=== PATIENT | female | born 1985 | race Caucasian/White ===

== ENCOUNTER 2017-03-12 05:00 | Day surgery (SDC) | payer OTHER ==
[2017-02-17 12:41] VITALS: BMI 19.0
--- NOTE | 2017-02-17 13:10 | PAT Medication Instructions ---
Service Date Feb 17, 2017. Current Home Medication List Amlodipine (Norvasc), 2.5 MG PO QPM Ascorbic Acid (Vitamin C), 500 MG PO QPM Ijlwmlp-Bfoeekkxbkacc-Xttkeiqt (Excedrin Extra Strength), 1-2 TAB PO PRN PRN for -2 Ibuprofen (Advil), 400 MG PO PRN [Ferrous Sul], 65 MG PO QPM Medication Instructions For Your Scheduled Surgery - Hold the following medications the morning of surgery: Eqeugdq-Uyizmgtustjpk-Qnaqecsk (Excedrin Extra Strength), 1-2 TAB PO PRN ( otherwise okay to continue per surgeon) Ibuprofen (Advil), 400 MG PO PRN (otherwise okay to continue per surgeon) - Take the following medications as scheduled the night before surgery: Amlodipine (Norvasc), 2.5 MG PO QPM Ascorbic Acid (Vitamin C), 500 MG PO QPM [Ferrous Sul], 65 MG PO QPM nothing to eat or drink after midnight If you have any questions please call us at [phone] or [phone] or [phone]
[2017-02-17 14:54] LABS: BASO % 0.5 %; BASO ABS # 0.03 K/uL (0-0.2); COMPLETE YES; EOS % 1.2 %; HEMATOCRIT 42.8 % (37-47); LYMPH % 25.2 %; LYMPH ABS # 1.64 K/uL (1.2-3.4); MEAN CORPUSCULAR HEMOGLOBIN 30.8 pg (25-34); MEAN CORPUSCULAR HGB CONC 34.6 g/dl (32-36); MEAN PLATELET VOLUME 10.4 fL (7.4-10.4); MONO % 9.2 %; NEUT % 63.9 %; PLATELET COUNT 270 K/uL (130-400); RED BLOOD COUNT 4.81 M/uL (4.2-5.4); WHITE BLOOD COUNT 6.51 K/uL (4.8-10.8)
--- NOTE | 2017-02-25 09:08 | HISTORY & PHYSICAL EXAMINATION ---
DATE OF ADMISSION: 03/12/2017 HISTORY OF PRESENT ILLNESS: Porfirio is a healthy 31-year-old white female who stands 5 feet 3 inches tall and weighs 112 pounds. 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 She was referred to my office for evaluation and treatment of a rather significant dental facial abnormality. 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 In other words, her teeth are not positioned properly and the only place that her teeth meet is in the posterior area of the jaw. As a result of this, the patient has a great deal of difficulty in eating and chewing and incising foods. She is constantly biting the insides of her cheek and tongue and lower lip. She had attempts at nonsurgical treatment by an civil geotechnical engineer in the [place], [place] area, but this failed. 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 As a result of this, the patient went for a second opinion to civil geotechnical engineer, Dr. Chuck Burden of [place], [place]. It was his recommendation that she be treated with a combination of orthodontics and orthognathic surgery. The first surgical procedure will consist of a maxillary LeFort I osteotomy in 2 segments to widen the upper jaw and then allow him to do orthodontic treatment. After approximately 12-18 months of orthodontic treatment, the patient will then undergo a maxillary impaction with slight advancement and possible mandibular orthognathic surgery to allow her occlusion to be placed into a normal relationship. I have reviewed with Porfirio and her mother on two occasions the risks and complications of the above-mentioned surgical procedure. They include, but are not limited to pain, swelling, infection, paresthesia involving the upper lip, sides of the nose and the gingival areas of her upper gums and palate. In addition, we talked about the possibility of bleeding, the very rare need for blood products and of course the need for hospitalization and general anesthesia. The risks to damage of her maxillary anterior and posterior teeth were also discussed, but this is extremely rare. We talked about wound healing problems, dietary management and time off from work. A complete review of the risks and complications can be found in this section of the patient's chart. Overall, I find Porfirio to be an extremely healthy 31-year-old white female who is capable of undergoing the orthognathic surgical procedure as planned. She has an extremely good understanding of the surgery and the expected outcome and understands that she will have additional surgery to correct her malocclusion in the future. PAST MEDICAL HISTORY: Porfirio's past medical history is essentially noncontributory. She gives no history of any type of cardiovascular problems with exception of controlled hypertension, which she is taking medication for. She has no history of any type of respiratory problems or neurological problems other than suffering from some migraine headaches. Dr. Burden and I feel that her migraine headaches are brought on by her significant malocclusion and the extreme pressure that she is exerting when she is chewing due to the poor relationship to her upper and lower teeth. She was never told to have any specific cardiac or respiratory studies. The patient gives no history of any type of thyroid or diabetes problems. She has no history of any type of bleeding or blood dyscrasias. The patient gives no history of any type of arthritic problems or pain in her back or lower legs. She does have some problems associated with her temporomandibular joint and again, it is our opinion that this is related to her significant skeletal malocclusion. She has no history of any type of oral or digestive problems. She does not smoke and she does not use alcohol. She does not have any history of any type of liver or kidney problems, no history of any type of cancer and she had anesthesia in the past and her only complaint was that she had some difficulty in waking up. The patient is taking a blood pressure medication, amlodipine 5 mg. She states that SHE HAS SEASONAL ALLERGIES AND IS ALLERGIC TO PENICILLIN. Her past surgery was in 2003, in which she had her thymus gland removed. Otherwise, I find Porfirio to be an extremely healthy young lady, who is capable of undergoing the orthognathic surgical procedure with general anesthesia as planned. PHYSICAL EXAMINATION: Physical examination was performed and the results are as follows: HEAD: Normocephalic without any history of any loss of consciousness, dizziness, vertigo or frequent headaches other than the occasional migraines. EARS: External auditory canals are clear, free of pathology. No excessive wax buildup. No hearing deficits. EYES: Pupils are reactive to light and accommodation. Sclera is clear. Good range of motion. Good visual acuity. NOSE: Midline. Septum is midline. No polyps. No deviations. Because of the patient's malocclusion, she is an obligate mouth breather due to the fact that she cannot close her lips over her teeth due to the open bite and maxillary problems. Hopefully with the surgical procedure, this will self correct. The patient gives no history of any type of major sinus problems or problems associated with nasal bleeding. Please note that I did discuss with the patient that as a result of the surgery, she may encounter some nasal congestion and/or a possibility of acute or chronic postnasal and sinus problems. However, this is quite rare. NECK: Supple. Full range of motion. Thyroid is not palpable. Trachea is midline. Good extension and flexion. LUNGS: Clear to auscultation and percussion. Good expansion. CARDIOVASCULAR: Normal sinus rhythm without any murmurs or gallops. ABDOMEN: Soft and no organomegaly or rebound phenomena noted. ORTHOPEDIC: Grossly intact. NEUROLOGIC: Grossly intact. SKIN: Clear. Free of any type of pathology. ORAL CAVITY: The oral cavity is within normal limits as far as the soft tissue of the floor of the mouth, the tongue, and the pharyngeal area. There is some scar tissue noted on the sides of the tongue and cheek as a result of her cheek and tongue biting due to her malocclusion. At the time of our examination, her temporomandibular joint function was good. There were some slight tenderness in the left temporomandibular joint and again this is a result of her malocclusion. Her teeth are in good repair. Orthodontic appliances are in place. The tongue, floor of the mouth, the posterior pharyngeal areas and airway are all within normal limits. IMPRESSION: Overall, I find Porfirio to be an extremely healthy young lady, who is able to undergo the proposed surgical procedure. Her past medical history is essentially noncontributory. She lives in the [place], [place]. Again, she works with the long term system for the [employer]. SHE HAS ALLERGIES TO PENICILLIN. She does not smoke and she does not drink. Her family history is essentially noncontributory. Routine laboratory studies were found to be within normal limits. It is at this time that I am clearing the patient to undergo the orthognathic surgical procedure as an outpatient at [facility] on 03/12/2017.
[~2017-03-12] VITALS: Ht 160 cm; Wt 50.0 kg
[~2017-03-12 05:00] MED LIST: AMLO-110 PO; ASCO1CAP3 PO; ASPI-391 PO; FERROUS SUL PO; IBUP-1050 PO
[2017-03-12 05:58] VITALS: BP 153/93; PULSE 106; TEMP 36.4; O2SAT 98; Ht 160 cm; Wt 50.0 kg
[2017-03-12] MEDS ORDERED: LACTATED RINGER'S 1000ML 1,000 ML IV SCH ×2 (06:00)
[2017-03-12] MEDS ORDERED: CLINDAMYCIN 600 MG/54 ML D5W IV SCH (06:00)
[2017-03-12] MEDS ORDERED: DEXAMETHASONE SOD INJ 4 MG/ML VIAL ONE (06:35)
[2017-03-12] MEDS ORDERED: GLYCOPYRROLATE INJ 0.2 MG/ML VIAL ONE (06:35)
[2017-03-12] MEDS ORDERED: ONDANSETRON INJ 2 MG/ML 2 ML VIAL ONE (06:35)
[2017-03-12] MEDS ORDERED: LIDOCAINE HCL 2% 2 ML VIAL (20MG/ML) ONE (06:35)
[2017-03-12] MEDS ORDERED: NEOSTIGMINE METHYLSULFATE 5 MG/5 ML SYR ONE (06:35)
[2017-03-12] MEDS ORDERED: PROPOFOL IV EMULSION 10 MG/ML 20 ML VIAL IV ONE (06:35)
[2017-03-12] MEDS ORDERED: ROCURONIUM BROMIDE 10 MG/ML 5 ML VIAL IV ONE (06:35)
[2017-03-12] MEDS ORDERED: FENTANYL CITRATE INJ 50 MCG/1 ML 2 ML VIAL ONE (06:36)
[2017-03-12] MEDS ORDERED: MIDAZOLAM HCL 1 MG/ML 2ML VIAL ONE (06:36)
[2017-03-12] MEDS ORDERED: OXYMETAZOLINE HCL 0.05% NA SPR 15 ML BTL ONE (06:44)
[2017-03-12] MEDS ORDERED: LIDOCAINE HCL 2% JELLY 30 ML TUBE EXT ONE (06:45)
--- NOTE | 2017-03-12 06:56 | History & Physical Bridge Note ---
H&P Re-Evaluation Bridge Note: I have examined the patient, reviewed the History & Physical and in the interval since the performance of the History & Physical I have noted the following changes of clinical significance: No changes noted
[2017-03-12] MEDS ORDERED: D5W AND 1/2NSS + 20MEQ KCL 1,000 ML IV SCH (06:57)
[2017-03-12] MEDS ORDERED: HYDROCODONE/APAP 2.5MG/108MG ELIX 5 ML UDP PO PRN (07:00)
[2017-03-12] MEDS ORDERED: CLINDAMYCIN IV 600 MG in DEXTROSE 5% 50ML 50 ML IV SCH (07:00)
[2017-03-12] MEDS ORDERED: ATROPINE SULFATE 0.1 MG/ML 5ML SYR IV PRN ×2 (07:00→08:15)
[2017-03-12] MEDS ORDERED: PROMETHAZINE HCL INJ 6.25 MG in SODIUM CHLORIDE 0.9% 50ML 50 ML IV PRN ×2 (07:00→08:15)
[2017-03-12] MEDS ORDERED: ACETAMINOPHEN SOLN 650MG/20.3 ML UDC PO PRN (07:00)
[2017-03-12] MEDS ORDERED: MoRPHine SULFATE 2 MG/ML CARP IV PRN (07:00)
[2017-03-12] MEDS ORDERED: LORAZEPAM INJ 1 MG in SYRINGE 0.5 ML IV PRN (07:00)
[2017-03-12] MEDS ORDERED: ONDANSETRON INJ 2 MG/ML 2 ML VIAL IV PRN ×3 (07:00→08:15)
[2017-03-12] MEDS ORDERED: HYDROmorphone INJ 1 MG/ML SYR IV PRN ×2 (07:00→08:15)
[2017-03-12] MEDS ORDERED: OXYMETAZOLINE HCL 0.05% NA SPR 15 ML BTL PRN (07:00)
[2017-03-12] MEDS ORDERED: EpHEDrine SULFATE INJ 50 MG/ML AMP IV PRN ×2 (07:00→08:15)
[2017-03-12] MEDS ORDERED: TRIAMCINOLONE ACET 0.1% OINT 15 GM TUBE ONE (07:02)
[2017-03-12] MEDS ORDERED: CHLORHEXIDINE GLUCONATE 0.12% 15 ML UDP ONE (07:02)
[2017-03-12] MEDS ORDERED: BUPIVACAINE/EPINEPHRINE 0.5% 1:200,000 1.8 ML CARP ONE (07:03)
[2017-03-12] MEDS: PHENYLEPHRINE HCL 0.5% NA SPRAY 15 ML BTL STA ×2 (07:08→07:16)
[2017-03-12] MEDS ORDERED: ESMOLOL HCL 10 MG/ML 10 ML VIAL ONE (07:15)
[2017-03-12] MEDS ORDERED: LABETALOL HCL IV 5 MG/ML 20ML IV ONE (07:15)
[2017-03-12] MEDS ORDERED: METOPROLOL TARTRATE 1 MG/ML VIAL ONE (07:37)
[2017-03-12] MEDS ORDERED: FENTANYL CITRATE INJ 50 MCG/1 ML 2 ML VIAL IV PRN (08:15)
--- NOTE | 2017-03-12 09:55 | Discharge Instructions ---
Discharge Instructions Date of Service Mar 12, 2017. Visit Reason for Visit: Maxillary Hypoplasia, Impacted Magazine Teeth Discharge Discharge Diagnosis / Problem: maxillary deformity Discharge Goals Goal(s): Decrease discomfort, Improve function, Increase independence Medications Restart Stopped Medication(s): tomorrow Activity Recommendations Activity Limitations: per Instructions/Follow-up section Lifting Limitations: no more than 25 pounds Exercise/Sports Limitations: until after follow-up appointment May Resume Sexual Activity: after follow-up appointment Shower/Bathe: no limitations Driving or Machine Use: resume 3 days after discharge Weightbearing Status: Left weightbearing (as tolerated), Right weightbearing ( as tolerated) none Anesthesia . Post Anesthesia Instructions: If you have had General Anesthesia or IV Sedation: * Do not drive today. * Resume driving when surgeon permits. * Do not make important decisions or sign legal documents today. * Call surgeon for: 1. Temperature elevations greater than 101 degrees F. 2. Uncontrollable pain. 3. Excessive bleeding. 4. Persistent nausea and vomiting. 5. Medication intolerance (nausea, vomiting or rash). * For nausea and vomiting use only clear liquids such as: tea, soda, bouillon until nausea subsides, then gradually increase diet as tolerated. * If you have any concerns or questions, call your surgeon's office. If physician is unavailable and it is an emergency, call 911 or go to the nearest emergency room. . Instructions / Follow-Up Instructions / Follow-Up call Dr Bishop`s office to set up follow up next week [phone] Diet Recommendations Recommended Home Diet: no limitations Fluid Restriction: None Diet Texture: Dental Soft (bite-sized) Liquid Consistency: Pudding Thick Procedures Procedures Performed: Maxillary Leforte I Osteotomy; Removal of four impacted wisdom teeth Pending Studies Studies pending at discharge: no Work Instructions Return To Work: after follow-up Lifting Limitations: no more than 20 pounds Additional Instructions: No contact with in mates School Instructions Return To School: after follow-up Medical Emergencies . Who to Call and When: Medical Emergencies: If at any time you feel your situation is an emergency, please call 911 immediately. . Non-Emergent Contact Non-Emergency issues call your: Primary Care Provider, Surgeon Contact Number: [phone] Call Non-Emergent contact if: you have a fever, temperature is above 101.5, your pain is not controlled, your pain is worsening, your pain is unusual for you, your pain is concerning you, you have any medication questions Dr Bishop [phone] . . "Provider Documentation" section prepared by Andrew Bishop. . [place] Drug Monitoring Program Search Results: patient reviewed within database Drug Monitoring Findings: none
[2017-03-12] MEDS: FENTANYL CITRATE INJ 50 MCG/1 ML 2 ML VIAL IV PRN ×2 (09:56→10:02)
--- NOTE | 2017-03-12 10:22 | Anesthesiology Progress Note ---
Anesthesia Post Op Note Date & Time Mar 12, 2017 at 10:22 Vital Signs Pain Intensity: 4 Vital Signs Past 12 Hours Date Time Temp Pulse Resp B/P (MAP) Pulse Ox O2 Delivery O2 Flow Rate FiO2 03/12/17 10:15 36.1 58 16 123/76 97 Room Air 03/12/17 10:05 36.1 60 16 114/73 96 Room Air 03/12/17 09:55 69 16 107/75 95 Room Air 03/12/17 09:45 57 16 118/71 99 Mask 10 03/12/17 09:35 59 16 103/60 98 Mask 10 03/12/17 09:25 36.4 83 16 105/61 99 Mask 10 03/12/17 05:58 36.4 106 22 153/93 (113) 98 Room Air Notes Mental Status: alert / awake / arousable, participated in evaluation Pt Amnestic to Procedure: Yes Nausea / Vomiting: adequately controlled Pain: adequately controlled Airway Patency, RR, SpO2: stable & adequate BP & HR: stable & adequate Hydration State: stable & adequate Anesthetic Complications: no major complications apparent
[2017-03-12 10:30] VITALS: BP 111/63; PULSE 65; TEMP 36.3; O2SAT 97
[2017-03-12 11:00] VITALS: BP 123/78; PULSE 75; TEMP 36.5; O2SAT 97
[2017-03-12 11:30] VITALS: BP 130/81; PULSE 74; TEMP 36.5; O2SAT 97
[2017-03-12 12:00] VITALS: BP 130/84; PULSE 64; TEMP 36.5; O2SAT 97
[2017-03-12] MEDS ORDERED: DEXAMETHASONE INJ 6 MG in SYRINGE 0 ML IV SCH (12:00)
[2017-03-12] MEDS ORDERED: KETOROLAC TROMETHAMINE 30 MG/ML VIAL IV. SCH (12:00)
--- NOTE | 2017-03-12 12:11 | [facility] Post Operative Brief Note ---
Immediate Operative Summary Operative Date Mar 12, 2017. 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 Andrew Bishop Death Claim Examiner Surgeon(s) None Estimated Blood Loss 25 mL Findings maxillary open bite and constriction Specimens No pathology specimens per surgeon Drains none Anesthesia ga and local Complication(s) None Disposition Recovery Room / PACU (She did great !)
[2017-03-12 13:00] VITALS: BP 131/80; PULSE 87; O2SAT 98
--- NOTE | 2017-03-15 21:00 | OPERATIVE REPORT ---
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 POSTOPERATIVE DIAGNOSES: Same. PROCEDURE: [place] I maxillary osteotomy in 2 segments and removal of infected impacted wisdom teeth x4. OPERATION: After the patient was prepared for the operation and all physical exams were carried out as well as laboratory studies, the patient was cleared to undergo the general anesthesia. The patient was taken back to the operating room and placed under general anesthesia via nasotracheal intubation. After adequate period of time to allow for the proper level of anesthesia, the patient was prepped and draped in the usual manner and the oral cavity was isolated. At this time, a time-out was taken to identify the patient and the procedure and proper instrumentation. After this was verified, the operation began. Using local anesthesia, this was infiltrated into the maxillary tissues as well as bilateral mandibular nerve blocks. After an adequate period of time for hemostasis and local anesthetic effect, the oral surgical procedure began. At this time, the oral cavity was irrigated and suctioned dried an oropharyngeal throat pack was placed. Now using an electrocautery instrument, an incision was made in the right retromolar area through the mucosal tissue and the tissue was reflected around the third molar region of the lower right third molar. Once the tissue was reflected, a drill with a round bur was used to remove the bone around the height of contour. The tooth was visualized and removed from the oral cavity with use of a straight elevator. At this time, the bony margins were smoothed, irrigated and the area was sutured closed with a 2-0 chromic suture. I now turned my attention to the maxillary right third molar area. Once again, the electrocautery instrument was used to make the incision. The tissues were reflected, the bone around the height of contour was removed with a rongeur and the tooth was visualized. A straight elevator was introduced and the tooth was removed. The bony margins were smoothed and area was irrigated and sutured closed with the use of a 2-0 chromic suture. I now turned my attention to the left side. Once again, the tissues were held tight. The incision was made with electrocautery instrument. The tissues were reflected. The bone was exposed. A drill was used to remove the bone around the height of contour. Because of the angulation of this tooth, a fissure bur was introduced and the tooth was now split in 2 equal halves, both halves were removed, the socket was irrigated, the bony margins were smoothed and the area was sutured closed with the use of a 2-0 chromic suture. Once again, I turned my attention to the maxillary left third molar area. With the use of an electrocautery instrument, the incision was made, the tissue was reflected, the bone around the height of contour was removed with a rongeur and the tooth was removed with a straight elevator. The bony margins were then smoothed and sutured closed with the use of a 2-0 chromic suture. Once this was done, I changed the oropharyngeal throat pack, irrigated the oral cavity again, suctioned everything dry and placed an oropharyngeal throat pack. I now turned my attention to doing the maxillary osteotomy. Because of the nature of this deformity, the patient had a very hypoplastic maxilla. She also had some vertical maxillary excess in which the posterior aspect of the maxilla was longer than the anterior area of the maxilla causing her open bite. This is the first phase of multifaceted surgical procedures for this patient. PROCEDURE: The electrocautery instrument was used to make an incision high in the mucobuccal fold from the right first bicuspid area to the left first bicuspid area. The tissues was incised through the mucosa, the submucosa and then the periosteum was cut. Once this was done, I used a periosteal elevator, reflected the mucoperiosteal tissue superiorly to the level of the piriform rim and then slightly higher and then dissected posteriorly around the tuberosity region and the buttress of the maxilla. I then carefully reflected the mucoperiosteal tissue off the roots of teeth #8 and 9. At this time, I had excellent visualization of the maxilla. I now carefully reflected the mucoperiosteal tissue around the anterior nasal spine and the piriform rim. I was able to slide a periosteal elevator between the lateral sinus nino and the nose. This was done to protect the mucoperiosteal tissue. I dissected again posteriorly to ensure that I had good visualization and a good tissue reflection off the tuberosity regions. Thin gauze pressure dressings were applied to maintain hemostasis. Now using a caliper, I was able to measure the roots of the maxillary anterior and posterior teeth, I placed a refference aldo on the maxilla and to avoid any injury to the roots of the teeth, I added approximately 5 mm to this measurement. Now using a reciprocating saw, an osteotomy was made from the tuberosity region to the piriform rim. Great care was taken to protect the mucoperiosteal tissue of the nose. Once this was done, I then used a curved osteotomy blade and completed the osteotomy in the tuberosity region. I now used a curved osteotome and severed the attachment of the tuberosity from the pterygoid plate. Once this was done, a gauze pressure dressing was applied. I now turned my attention to the left side. Once again, the measurements were made on the lateral wall of the maxilla to avoid any injury to the roots of the teeth. The tissues reflected in the usual manner and now using the reciprocating saw, the osteotomy was now created from the posterior region of the buttress of the maxilla across the lateral wall of the maxilla to the piriform rim. I now switched to a curved osteotomy blade and completed the osteotomy around the tuberosity. I now placed the curved osteotome in the pterygoid region and severed the attachments of the pterygoid plate from the tuberosity. Once again, a gauze pressure dressing was applied. I now turned my attention to the anterior nasal spine. The anterior nasal spine was very sharp and I rounded it off to create a better site for the osteotomy. Visualizing the osteotomy, I was able to note that the roots of the maxillary anterior teeth were sufficiently divergent to allow for safe osteotomy between these areas. Using a small oscillating blade in a handpiece, I was able to initiate the osteotomy through the dense cortical facial bone from the crest of the maxilla to the piriform rim. The anterior nasal spine was essentially cut in half. At this time with the use of straight osteotomes, I was able to carefully mallet the anterior portion of the maxilla to ensure that we had good separation of the maxilla in 2 equal halves. Great care was taken to avoid any trauma to the mucoperiosteal tissue of to the palate. When I completed the osteotomy, there were no rents in mucoperiosteal tissue. Now using a straight osteotome, I was able to sever the attachments of the anterior nasal spine and the septum of the maxilla. The osteotome was carefully driven posteriorly until we were back to the posterior nasal spine area. In essence were able to completely dissect all of the mucoperiosteal tissue and bone off the roof of the maxilla. At this time, I was able to downfracture the maxilla slightly and completed the osteotomy across the midline of the maxilla with the use of a straight oscillating blade. At this time, the maxilla was cut into 2 equal halves. Because of the telescoping nature of the maxilla, as I pushed the maxilla superiorly, it literally locked into position and essentially we had a right and left half of the maxilla that was equally cut so that we could then get the proper transverse increased in transverse dimension of the maxilla. I now activated the orthodontic appliance and noted that the maxilla was advancing laterally in the predicted manner. To ensure that we had good bone to bone contact in the anterior area, I was able to obtain a small wedge of bone from the upper left portion of the maxillary vault by doing a slight osteotomy between the roots of the maxillary posterior teeth and the sinus wall. This wedge of cortical cancellous bone was then wedged into position and acted as a nidus for bone formation, during the healing procedure. At this time, the maxilla was judged to be very stable. The occlusion was verified and noted that we indeed had the appropriate lateral expansion of the maxilla as predicted. At this time, the orthodontic appliance was now deactivated to ensure that we had good stability. The appliance will be activated again in approximately 1 week. At this time, being satisfied with all the osteotomy cuts and the stability of the maxilla, I irrigated the maxillary sinuses to ensure that there was no debris or blood clots within the sinus. Being satisfied with this, I then removed the oropharyngeal throat pack, irrigated the nasopharyngeal areas and removed any clots in the nasal area as well. Another gauze pressure dressing was applied. I now turned my attention to the closure. With the use of a 3 mersilene suture, I was now able to perform an alar cinch technique to ensure a good anatomical control of the base of the nose. Two sutures were placed in this manner to ensure the proper support of the base of the nose. Once this was completed using a 4-0 Vicryl suture, I was able to complete a VY closure of the mucoperiosteal tissues of the maxilla. When all was said and done, we had excellent closure of the maxilla, we had good support of the base of the nose, we had good support of the tip of the nose and the maxilla was stable and the occlusion and temporomandibular joints were functioning very well. The wisdom teeth sites were closed and there was no bleeding. I now removed the oropharyngeal throat pack, irrigated the area again, I passed an orogastric tube and evacuated the contents of the stomach. At this time, I placed a pressure dressing on the upper lip to ensure good pressure to the upper lip during the initial 24 hours. Once this was done, I turned the patient over to the anesthesia department, they continued monitoring the patient until she was stable enough for extubation. Upon extubation, she was breathing well, she had no bleeding and the patient was now transferred to the recovery room breathing in satisfactory condition with all vital signs stable and be monitored. In the recovery room, the patient did extremely well. She had some slight pain that was controlled. She had some slight nausea that was also being controlled and subsequently she was transferred to the outpatient area where she was monitored and given fluids. At this time, once the patient meets all criteria for discharge, she will be discharged from the hospital. The patient was given all her prescriptions and instructions prior to the operation, I did review this with her mother prior to discharge. The patient will be followed in my office for postoperative management and was given my phone number as well as my email, if she has any questions or concerns over the next few days. Postoperatively, the patient will be managed by me as well as her reimbursement auditor to ensure a good outcome for the procedure. Overall, the patient had minimal blood loss from the procedure and I expect this to be an uneventful postoperative recovery. I attest to the content of the Intraoperative Record and any orders documented therein. Any exceptions are noted below. HERIBERTO
== END 2017-03-12 14:25 | disposition home or self-care (01) ==
LOC: C.ACU 05:00
PROVIDERS: ATTEND Dentist Oral and Maxillofacial Surgery
DX: M26.02 Maxillary hypoplasia (principal)